=== PATIENT | male | born 1945 | race Caucasian/White ===

== ENCOUNTER 2025-02-21 12:14 | Emergency (ER) | payer OTHER, SELFPAY ==
--- NOTE | 2025-02-21 12:18 | ED_ITS ---
HPI - Animal Bite General Chief Complaint: Animal Bite Stated Complaint: right hand pointer finger cat bite Time Seen by Provider: 02/21/25 12:17 Source: patient Mode of arrival: ambulatory Limitations: no limitations History of Present Illness HPI narrative: Donnie is a 79 year old female patient presenting to the clinic today with c/oa cat bite to his right index finger x4 days. He reports it was his inside cat that bite him. States he was petting the cat the cat began to play and bit down on his right index finger. No known rabies. Has swelling and tenderness with mild erythema to the right index finger. No drainage. Denies any fevers, chills, body aches, or joint pain. Is able to flex and extend the finger. Tetanus status unknown. Related Data Home Medications ?Medication ?Instructions ?Recorded ?Confirmed ?Last Taken ?Type latanoprost 0.005 % eye drops drp 02/21/25 Unknown History tamsulosin 0.4 mg capsule mg PO 02/21/25 Unknown History Allergies Allergy/AdvReac Type Severity Reaction Status Date / Time No Known Allergies Allergy Verified 02/21/25 12:28 Review of Systems Review of Systems: Pertinent positives per HPI. Patient denies any fever, chills, rash, headache, visual changes, dizziness, cough, runny nose, sore throat, shortness of breath, chest pain, palpitations, nausea, vomiting, diarrhea, constipation, abdominal pain, or any urinary issues. PMFSH Comments At the time of my signature, I reviewed and agree with the nursing past medical, surgical, social, and family history. There is no relevant family history pertinent to the patient complaint. Exam Narrative: General: Well-developed, well nourished, in no apparent distress Head: Normocephalic, atraumatic. Cardio: Regular rate and rhythm, s1 and s2 normal, no murmur appreciated. Resp: Clear to auscultation bilaterally, no rhonchi, rales, wheezing or rubs. Integumentary: [place], warm, and dry, closed puncture wound to the dorsal proximal index finger just below the PIP joint was localized swelling, erythema, and redness of the right index finger with mild redness and swelling over the right 2nd knuckle, range of motion within normal limits, right radial pulses strong and regular Course Course Emergency Course: Portions of this record may have been created with voice recognition software. Level of Care: Express Care Visit Vital Signs Vital signs: Vital Signs Temperature 36.6 C 02/21/25 12:28 Pulse Rate 77 02/21/25 12:28 Respiratory Rate 16 02/21/25 12:28 Blood Pressure 129/67 02/21/25 12:28 Pulse Oximetry 97 02/21/25 12:28 Oxygen Delivery Room Air 02/21/25 12:28 Temperature 36.6 C 02/21/25 12:28 Pulse Rate 77 02/21/25 12:28 Respiratory Rate 16 02/21/25 12:28 Blood Pressure 129/67 02/21/25 12:28 Pulse Oximetry 97 02/21/25 12:28 Oxygen Delivery Room Air 02/21/25 12:28 Vital signs reviewed MDM - Animal Bite MDM Narrative Medical decision making narrative: At the time of visit patient is resting comfortably on the exam table. Patient appears to be nontoxic. Plan: I suspect patient has an infected cat bite to the right index finger. Prescription for Augmentin was sent to the pharmacy. Tetanus was updated in the clinic today. Supportive measures were discussed with the patient and they voiced understanding discharge instructions and agrees to treatment plan. Return precautions reviewed Differential Diagnosis Differential diagnosis: Likely bite by animal, cat bite and other (Cellulitis) Discharge Plan Discharge Clinical Impression: Cat bite of finger Qualifiers: Encounter type: initial encounter Qualified Code(s): S61.259A - Open bite of unspecified finger without damage to nail, initial encounter Patient Disposition: Home Condition: Stable Instructions: Antibiotic Form, Animal Bite (ED) Additional Instructions: Tdap 0.5ml given in the clinic today. Take Augmentin as prescribed Leave bandage on for 24 hours then may remove and apply band aide covering as needed. Keep wound clean and dry Watch for signs and symptoms of infection-fever not controlled by Tylenol or Motrin, increase in redness, streaking, swelling, purulent discharge, or increase in pain. Follow up with your PCP in 2 days for wound check Patient Language: Swedish Prescriptions: New amoxicillin-pot clavulanate 875-125 mg tablet 1 tablet PO Q12H 7 Days Qty: 14 0RF No Action latanoprost 0.005 % drops tamsulosin 0.4 mg capsule PO Follow-up/Referrals: UNKNOWN,DOCTOR [Non-Staff] - Time of Disposition: 12:30 Quality NIHSS Nursing Documentation ED NIHSS nursing documentation: reviewed/agree
--- OUTSIDE RECORDS SUMMARY | 2025-02-21 12:23 | XMS_ITS | Encounter Summary ---
Author Organization [facility] Address [address] [place] [address] Phone Care Team Providers Care Officer Lieutenant Name Role Phone Landon Heath MD Primary Care Provider [phone] Encounter Details Date Type Department Care Team (Late st Contact Info) Description 01/17/2025 Results Follow-Up [facility] Dermatology [address] [place] [address] [address] [place] [phone] Earline Sanchez MD [address] [place] [address] [address] [place] [address] Surgical pathology Social History Tobacco Use Types Packs/Day Years Used Date Smoking Tobacco: Never Smokeless Tobacco: Never Alcohol Use Standard Drinks/Week Comments No 0 (1 standard drink = 0.6 oz pur e alcohol) [facility] Utilities Answer Date Recorded In the past 12 months has [employer], gas, oil, or water [employer] threatened to shut off services in your home? No 02/05/2024 Social Connection and Isolat ion Panel [NHANES] Answer Date Recorded In a typical week, how many times do you talk on the phone with family, friends, or neighbors? More than three times a week 02/05/2024 How often do you get togethe r with friends or relatives? More than three times a week 02/05/2024 How often do you attend chur or orthodox services? Never 02/05/2024 Do you belong to any clubs o r organizations such as caodaism groups, unions, fraternal or athletic groups, or school groups? Yes 02/05/2024 How often do you attend meet ings of the clubs or organizations you belong to? More than 4 times per year 02/05/2024 Are you , , di vorced, , never , or living with a partner? 02/05/2024 Overall Financial Resource Strain (CARDIA) Answe r Date Recorded How hard is it for you to pa y for the very basics like food, housing, medical care, and heating? Not hard at all 02/05/2024 PHQ-2 Answer Date Recorded PHQ-2 Total Score (If total score is 3 or more points, staff should administer the PHQ-9) 0 06/12/2024 Hunger Vital Sign Answer Date Recorded Within the past 12 months, y ou worried that your food would run out before you got the money to buy more. Never true 02/05/20 24 Within the past 12 months, t he food you bought just didn't last and you didn't have money to get more. Never true 02/05/2024 PRAPARE - Transportation Answer Date Re corded In the past 12 months, has l ack of transportation kept you from medical appointments or from getting medications? No 01/19 In the past 12 months, has l ack of transportation kept you from meetings, work, or from getting things needed for daily living? No 02/05/2024 Housing Stability Vital Sign Answer Jose e Recorded In the last 12 months, was t here a time when you were not able to pay the mortgage or rent on time? No 02/05/2024 In the past 12 months, how m any times have you moved where you were living? 1 02/05/2024 At any time in the past 12 m [facility], were you homeless or living in a retirement (including now)? No 02/05/2024 Personal Safety Answer Date Recorded Have you ever been in or are you currently in a harmful physical or emotional relationship or is someone making you feel afraid or unsafe? Denies 02/02/2024 Education Answer Date Recorded What is the highest level of school you have completed or the highest degree you have received? Master's degree (e.g., MA, MS, Kerrie, MEd, [employer]ER [employer], LENY) 02/05/2024 Sex and Gender Information Value Date Recorded Sex Assigned at Not on file Legal Sex Male 3:37 AM [employer] Gender Identity Not on file Sexual Orientation Not on file documented as of this encounter Plan of Treatment Not on file documented as of this encounter Visit Diagnoses Not on filedocumented in this encounter Care Teams Officer Lieutenant Relationship Specialty Start Date End Date Landon Heath MD [address] [address] PCP - General Internal Medicine 02/01/18 documented as of this encounter
--- OUTSIDE RECORDS SUMMARY | 2025-02-21 12:23 | XMS_ITS | Continuity of Care Document ---
Author Name [facility] Organization [facility] Care Team Providers Care Purchasing Analyst Name Role Phone [facility] Unavailable Unavailable Problems Combined list of problems from [facility] and [facility] facilities. It does not include entries that were removed or entered in error. Problem Status Onset Date Problem Type Date of Resolution Comments Source Adenomatous polyp of colon Active Condition [facility] Allergic rhinitis Active Condition [facility] Asthma Active Condition [facility] Bilateral hearing loss Active Condition [facility] BPH - benign prostatic hyperplasia Active Condition [facility] Cancer of skin Active Condition [facility] Glaucoma Active Condition [facility] Primary generalized osteoarthrosis Active Condition [facility] Diagnosis: ICD-10-CM H90.0 Conductive hearing loss, bilateral Active Diagnosis [facility] Diagnosis: ICD-10-CM M79.673 Pain in unspecified foot Active Diagnosis [facility] Medications Combined list of outpatient medications from [facility] and [facility] facilities.Medications provided include 1) outpatient medications from the last 15 months, and 2) patient-reported medications. Medication Details Route Status Patient Instructions Prescription Expires Prescription Number Last Dispense Date Ordering Provider Order Date Order Qty Source TAMSULOSIN HCL 0.4MG CAP TAKE 1 CAPSULE BY MOUTH EVERY EVENING ORAL ACTIVE Galina FUNEZ 2019 [facility] Immunizations Combined list of available immunizations from the [facility] and [facility] facilities. Immunization Series Date Given Administered By Site Reaction Lot Number CVX Code Drug Bag Filler Status Comments Source INFLUENZA, HIGH-DOSE, QUADRIVALENT 3 2020 197 complet ed HISTORICA L INFORMATI ON - FROM OTHER REGISTRY, [facility] COVID-19 (MODERNA), MRNA, LNP-S, PF, 100 MCG/0.5 ML DOSE 2 2020 207 complet ed MOD; [id number]; 1 [facility] COVID-19 (MODERNA), MRNA, LNP-S, PF, 100 MCG/0.5 ML DOSE 1 2020 207 complet ed MOD; [id number]; 1 [facility] ZOSTER RECOMBINANT 3 2018 187 complet ed HISTORICA L INFORMATI ON - FROM OTHER REGISTRY, [facility] ZOSTER RECOMBINANT 2 2018 187 complet ed HISTORICA L INFORMATI ON - FROM OTHER REGISTRY, [facility] N INFLUENZA, UNSPECIFIED FORMULATION 2017 88 complet ed [facility] INFLUENZA, UNSPECIFIED FORMULATION 2 2017 88 complet ed HISTORICA L INFORMATI ON - FROM OTHER REGISTRY, [facility] N PNEUMOCOCCAL POLYSACCHARID E PPV23 1 2017 33 complet ed HISTORICA L INFORMATI ON - FROM OTHER REGISTRY, [facility] INFLUENZA, UNSPECIFIED FORMULATION 1 2016 88 complet ed HISTORICA L INFORMATI ON - FROM OTHER REGISTRY, [facility] INFLUEN[facility], UNSPECIFIED FORMULATION [address] in [facility] DIVIS[facility] N ZOSTER LIVE 1 2015 121 complet ed HISTORICA L INFORMATI ON - FROM OTHER REGISTRY, [facility] Vital Signs Combined list of inpatient and outpatient Vital Signs from [facility] and [facility], ranging from 12 months to all on record, depending upon the facility. Vital Sign Value Date Comments Source SYSTOLIC BLOOD PRESSURE 135 01/09/2025 10:20:25 [facility] DIASTOLIC BLOOD PRESSURE 71 01/09/2025 10:20:25 [facility] PULSE OXIMETRY 99 01/09/2025 10:20:25 [facility] WEIGHT 199.2 01/09/2025 10:20:25 [facility] BMI 30 kg/m2 01/09/2025 10:20:25 [facility] PAIN 4 01/09/2025 10:20:25 [facility] HEIGHT 68 01/09/2025 10:20:25 [facility] TEMPERATURE 97.4 01/09/2025 10:20:25 [facility] PULSE 67 01/09/2025 10:20:25 [facility] RESPIRATION 18 01/09/2025 10:20:25 [facility] Encounters Combined list of: 1) Encounters from [facility] facilities going backup to the last 18 months, not all [place] inpatient encounters are included; 2) Encounters from the Department of [facility] facilities going backup to 280 months. Location Location Details Encounter Type Encounter Number Reason For Visit Attending Provider ADM Date DC Date Status Disposition Source [facility] Outpatient Encounter [id number] 10/23 [facility] Outpatient Encounter [id number] DEAN ALEXIS 01/04 [facility] DIVISION OFFICE O/P EST MOD 30 MIN [id number] Diagnos is: ICD-10- CM M79.673 Pain in unspeci fied foot KERA,C ORY A 01/09 [facility] N [facility] Outpatient Encounter [id number] 11/29 [facility] Outpatient Encounter [id number] DEAN ALEXIS 01/07 [facility] DIVISION OFFICE O/P EST MOD 30 MIN [id number] Diagnos is: ICD-10- CM H90.0 Conduct tomas hearing loss, Daniel Naidu A 01/09 [facility] Outpatient Encounter [id number] 01/21 [facility] Outpatient Encounter [id number] 01/31 [facility] Social History Combined list of available smoking, tobacco, and other social history from [facility] of Defense and Veterans Affairs facilities. Social History Type Response Date Comment [facility] e Tobacco smoking status NHIS VA-TOBACCO NEVER USED 01/10/2024 [facility] History of tobacco use VA-TOBACCO NEVER USED 11/18/2022 [facility] History of tobacco use VA-TOBACCO NEVER USED 11/19/2021 [facility] History of tobacco use VA-TOBACCO NEVER USED 06/24/2020 [facility] History of tobacco use VA-TOBACCO NEVER USED 12/20/2017 [facility] Plan of Care List of future care activities from [facility] facilities. Additional future care activities may be listed in the Assessment and Plan section. Date/Time Care Activity Care Activity Detail Facili ty 04/01/2025 AMBULATORY - SURGERY AMBULATORY - SURGERY [facility]
--- OUTSIDE RECORDS SUMMARY | 2025-02-21 12:23 | XMS_ITS | Clinical Summary ---
Author Organization [facility] Address [address] [place] [address] Care Team Providers Care Design Technology Professor Name Role Phone Unavailable Primary Care Provider Unavailabl e Source Comments [facility],non-owned Affiliates and Associated Physician Practices is amultiple site organization consisting of ambulatory clinics and hospital sitesin [place], [place], [place] and [place]. This disclosure is being madepursuant to the Care Everywhere program and may not contain all information available regarding this patient. Last updated 18.[facility] Social History Tobacco Use Types Packs/Day Years Used Date Smoking Tobacco: Never Assessed Sex and Gender Information Value Date Recorded Sex Assigned at Not on file Legal Sex Male 6:05 AM CARPENTER MATE Gender Identity Not on file Sexual Orientation Not on file Last Filed Vital Signs Vital Sign Reading Time Taken Comments Blood Pressure 120/62 09/27/2015 12:13 AM CARPENTER MATE Pulse 69 09/27/2015 12:13 AM CARPENTER MATE Temperature 36.3 C (97.3 F) 09/26/2015 8:20 PM CARPENTER MATE Respiratory Rate 16 09/27/2015 12:13 AM CARPENTER MATE Oxygen Saturation 100% 09/27/2015 12:13 AM CARPENTER MATE Inhaled Oxygen Concentration - - Weight 93.4 kg (206 lb) 09/26/2015 8:20 PM CARPENTER MATE Height 177.8 cm (5' 10) 09/26/2015 8:20 PM CARPENTER MATE Body Mass Index 29.56 09/26/2015 8:20 PM CARPENTER MATE Plan of Treatment Health Maintenance Due Date Last Done Comments DTAP/TDAP/TD VACCINES (1 - Tdap) 1962 PNEUMOCOCCAL VACCINE 50+ (1 of 1 - PCV) 1993 ZOSTER VACCINE (1 of 2) 1993 Respiratory Syncytial Virus (RSV) Vaccine Pt: or over 60 yrs (1 - 1-dose 75+ series) 2018 COVID-19 VACCINE ( - 2023-2 5 season) 2024 DEPRESSION SCREENING 08/21/2024 INFLUENZA VACCINE (Season Ended) 2025 HEPATITIS B VACCINE Aged Out No longe r eligible based on patient's age to complete this topic HIB VACCINE Aged Out No longer eligi ble based on patient's age to complete this topic HPV VACCINE Aged Out No longer eligi ble based on patient's age to complete this topic MENINGOCOCCAL (Group B) VACC INE SHARED DECISION-MAKING Aged Out No longer eligibl e based on patient's age to complete this topic MENINGOCOCCAL GROUPS A/C/Y/W VACCINE Aged Out No longer eligible b ased on patient's age to complete this topic
--- OUTSIDE RECORDS SUMMARY | 2025-02-21 12:23 | XMS_ITS | Referral Summary ---
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 superficial fragment of carr, variegated and scaly skin measuring 1.0 by 0.6 by 0.1 cm. The surgical margin is inked blue. The specimen is sectioned into 2 pieces and submitted entirely in a single cassette. Due to shrinkage, measurements may be different than those at time of procedure. sxt/mxf ICD-9 ZSD.1411 ZSD.27 Clerical Data A; 34450 B; 14949 C; 91808 The characteristics of special, immunohistochemical, and immunofluorescence stains and in-situ hybridization tests performed by the [facility] were deemed acceptable in ongoing housing quality standard inspector measures and in compliance with regulations drawn from the Clinical Laboratory Improvement Act cr9985 (CLIA '88). Control reactions for all stains performed were deemed adequate and appropriate by a pathologist prior to evaluation of patient tissue. Some diagnoses were rendered with the assistance of laboratory-developed tests utilizing analyte-specific reagents; the performance characteristic of these tests were determined by [facility] and are not cleared or approved by the [place] Food an Drug administration. Laboratory developed test may only be performed in a facility that is certified by the [facility] as a high-complexity laboratory under CLIA '88. These tests are used for clinical purposes and are not investigational. Earline Sanchez MD LAB PATHOLOGY ORDERABLES [facility] [address] [place] [id number] * XR Hip Right 2+ Vw (01/07/2025 4:42 PM CDT) Anatomical Region Laterality Modality Lower Extremities, Hip, Pelvis Right C omputed Radiography 01/08/2025 12:4 0 PM CDT Impressions 01/08/2025 12:40 PM CDT Comparison is made to prior radiograph 12/12/[address] 02/02/2024. Right hip arthroplasty noted. There has been interval progression of previously noted asymmetric liner wear. There is increasing lucency about the acetabular component suggestive of osteolysis. No periprosthetic fracture. Moderate pubic symphyseal osteoarthritis. Significant heterotopic ossification noted adjacent to the right superior lateral aspect of the joint. Electronically signed by: Kali Champagne M.D. Narrative 01/08/2025 12:40 PM CDT EXAMINATION: XR HIP RIGHT 2 OR 3 VIEWS HISTORY: Hip pain Procedure Note Kali Champagne MD - 01/08/2025 EXAMINATION: XR HIP RIGHT 2 OR 3 VIEWS HISTORY: Hip pain IMPRESSION: Comparison is made to prior radiograph 12/12/[address] 02/02/2024. Right hip arthroplasty noted. There has been interval progression of previously noted asymmetric liner wear. There is increasing lucency about the acetabular component suggestive of osteolysis. No periprosthetic fracture. Moderate pubic symphyseal osteoarthritis. Significant heterotopic ossification noted adjacent to the right superior lateral aspect of the joint. Electronically signed by: Kali Champagne M.D. Landon Heath MD IMG XR PROCEDURES Final Result * OCT, Retina - OU - Both Eyes (12/27/2024 10:39 AM CDT) Central Macular Thickness OS 297 mircometers CONTINUUM Central Macular Thickness OD 525 micrometers CONTINUUM Anatomical Region Laterality Modality Head Optical Coherenc e Tomography Narrative 12/27/2024 12:36 PM CDT Right Eye Macular thickness was 525 micrometers. Left Eye Macular thickness was 297 mircometers. Notes SRF and IRF OD Shahana Peck MD OPHTH TOMOGRAPHY Final Result * Colonoscopy (11/27/2023) Anatomical Region Laterality Modality Other [place] Provider ENDOSCOPY PROCEDURES Nieves l Result from Last 3 Months or Most Recently Relevant to Health Maintenance Insurance [facility] Advance Directives For more information, please contact: [phone] * Full Code (Latest Code Status on File) Date Activated Date Inactivated Comments 02/02/2024 6:55 PM 02/05/2024 10:40 PM Care Teams Horticulture Superintendent Relationship Specialty Start Date End Date Landon Heath MD [address] [address] PCP - General Internal Medicine 02/01/18
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
--- OUTSIDE RECORDS SUMMARY | 2025-02-21 12:23 | XMS_ITS | Clinical Summary ---
Author Organization [facility] Address [address] [place] [address] Care Team Providers Care [employer] Name Role Phone Landon Heath MD Primary Care Provider [phone] Allergies No known active allergies Medications multivitamin [...] 1.25 mg intravitr R One-Time Injection 01/30/2025 Ended Active Problems Problem Noted Date Diagnosed [...] months Assessment & Plan (09/04/2024 2:48 PM DIRECTOR IT): Denies DM II or HTN ME on [...] 08/04/2022 Assessment & Plan (08/04/2022 9:36 AM DIRECTOR IT): Recommend increase lubricant eye drops to 4 times/day; consider preservative- free drops, especially if using drops more than that. Add hot compresses with lid scrubs to improve quality of tears. Pseudophakia of both eyes 10/13/2021 Overview (10/13/2021): 1990s- Phaco/ intraocular lens (IOL)OU- [place] Assessment & Plan (09/04/2024 2:47 PM DIRECTOR IT): DFE next visit, ensure lenses in bag Assessment & Plan (07/19/2023 9:24 PM DIRECTOR IT): Doing well without concerns Assessment & Plan (06/15/2023 10:34 AM CDT): - Phaco/ intraocular lens (IOL)OU- [place] Implants in good position. Vision stable PCO both eyes (OU) not vi sig. Assessment & Plan (05/11/2023 10:09 AM CDT): 1990s- Phaco/ intraocular lens (IOL)OU- [place] Implants in good position. Vision stable PCO both eyes (OU) not vi sig. Assessment & Plan (08/04/2022 8:33 AM DIRECTOR IT): 1990s- Phaco/ intraocular lens (IOL)OU- [place] Implants in good position. Vision stable PCO both eyes (OU) not vi sig. Assessment & Plan (05/02/2022 9:10 AM CDT): - Phaco/ intraocular lens (IOL)OU- [place] Implants in good position. Vision stable PCO both eyes (OU) not vi sig. Assessment & Plan (02/16/2022 10:15 AM CDT): - Phaco/ intraocular lens (IOL)OU- [place] Implants in good position. Vision stable PCO both eyes (OU) not vi sig. Assessment & Plan (10/13/2021 10:33 AM DIRECTOR IT): - Phaco/ intraocular lens (IOL)OU- [place] Implants in [...] locally Assessment & Plan (10/09/2024 10:49 AM DIRECTOR IT): Patient with macular edema - improved on exam but steroid response Quick taper 3-2-1 over 3-4 days of PF Continue 3 classes OD Follow 2 weeks with mac OCT If edema returns will need VERONICA with retina Assessment & Plan (09/04/2024 2:48 PM DIRECTOR IT): POAG OU IOP OD borderline but stable OCT RNFL Stable HVF OU Continue 3 classes OD, 1 class OS Assessment & Plan (02/28/2024 1:45 PM CDT): POAG OU Denies concerns IOP at goal on 3 classes Follow 6 months with HVF/OCT OU Assessment & Plan (08/30/2023 2:49 PM DIRECTOR IT): IOP at goal on 3 classes OD, 1 class OS Doing well Follow for IOP check in 6 months, sooner for concerns Assessment & Plan (07/19/2023 9:25 PM DIRECTOR IT): S/p SLT x3 OD No SLT OS [...] subspecialist Assessment & Plan (08/04/2022 9:33 AM DIRECTOR IT): H/o SLT right eye (OD) - x [...] needed. Assessment & Plan (10/13/2021 10:40 AM DIRECTOR IT): H/o SLT right eye (OD) - x [...] loss. Assessment & Plan (06/23/2020 12:28 PM DIRECTOR IT): BMI Follow-up includes: nutrition counseling, exercise counseling and education provided. Erectile dysfunction 06/23/2020 Assessment & Plan (06/23/2020 12:59 PM DIRECTOR IT): He will try sildenafil 50 mg, 0.5-4 [...] this exam were completed as outlined by CMS. Please note that the documentation of this [...] R thigh x 1, ln2 blister care Encounters Date Type Department Care Team Description 01/30/2025 9:00 AM CDT Office Visit [facility] Ophthalmology 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) 01/17/2025 Results Follow-Up [facility] Dermatology [address] [place] [address] Earline Sanchez MD Surgical pathology 01/15/2025 Telephone [facility] [address], [place] [address] Landon Heath MD Referral Request 01/15/2025 Orders Only [facility] [address] [place] [address] Earline Sanchez MD Neoplasm of unspecified behavior of bone, soft tissue, and skin 01/14/2025 10:40 AM CDT Office Visit [facility] Dermatology [address] [place] [address] Earline Sanchez MD Neoplasm of unspecified behavior of bone, soft tissue, and skin (Primary Dx); Actinic keratosis; Epidermal cyst 01/10/2025 Telephone [facility] at [facility] [address], [place] [address] Landon Heath MD Medical Question/Miscellane ous 01/08/2025 Results Follow-Up [facility] [address], [place] [address] Landon Heath MD XR Hip Right 2+ Vw 01/07/2025 4:15 PM CDT - 01/07/2025 11:59 PM CDT Hospital Encounter [facility] - Imaging [address] [place] [address] Right hip pain Discharge Disposition: Discharge to home or self care 01/07/2025 3:30 PM CDT Office Visit [facility] Primary Care at [facility] [address] [place] [address] Landon Heath MD Right hip pain (Primary Dx); BMI 29.0-29.9,adult 12/30/2024 Telephone [facility] at [facility] [address] [place] [address] Landon Heath MD Referral Request 12/27/2024 9:15 AM CDT Office Visit [facility] Ophthalmology [address] [place] [address] Shahana Peck MD Macular edema (Primary Dx) 12/26/2024 Telephone [facility] Ophthalmology [address] [place] [address] Shahana Peck MD New symptoms from Last 3 Months Immunizations Immunization Administration Dates Next Due Influenza, [...] 03/05/2018 ZOSTER LIVE 02/09/2016 ZOSTER Recombinant 07/16/2019,05/13/2019 Surgical History Surgery Date Site/Laterality Comments HIP ARTHROPLASTY Hip replacement KNEE ARTHROPLASTY Knee replacement CATARACT EXTRACTION W/ INTRAOCULAR LENS IMPLANT Bilateral w/ Dr. Rodas TRABECULOPLASTY 04/18/2022 Right Repeat SLT- LMT TRABECULOPLASTY Right SLT x2 (Dr. Rodas and Dr. Estrada) Medical History Medical History Date Comments No pertinent past medical history Glaucoma Family History Medical History Relation Name Comments Depression Brother Depression; Alcohol abuse Father Alcoholism; Glaucoma Father Diabetes type II Maternal Grandmother Jessica betes mellitus type 2; Alcohol abuse Mother Alcoholism; Blindness Paternal Grandfather Glaucoma Paternal Grandfather Breast cancer Paternal Grandmother Cancer , breast; Macular degeneration Neg Hx Relation Name Status Comments Brother Father Maternal Grandmother Mother Paternal Grandfather Paternal Grandmother Social History Tobacco Use Types Packs/Day Years Used Date Smoking Tobacco: Never Smokeless Tobacco: Never Tobacco Cessation:Counseling Given: Not Answered Alcohol Use Standard Drinks/Week Comments No 0 (1 standard drink = 0.6 oz pur e alcohol) [facility] Utilities Answer Date Recorded In the past [...] often do you attend chur ch or gnosticist services? Never 02/05/2024 Do you belong to any clubs o r organizations such as yazidi groups, unions, fraternal or athletic groups, or [...] any time in the past 12 m [facility], were you homeless or living in a alf (including now)? No 02/05/2024 Personal Safety Answer [...] Master's degree (e.g., MA, MS, Kerrie, MEd, POWDERMAN, LENY) 02/05/2024 Sex and Gender Information Value Date Recorded Sex Assigned at Not on file Legal Sex Male 3:37 AM DIRECTOR IT Gender Identity Not on file Sexual Orientation Not on file Obstetrics History Last Filed Vital Signs Vital Sign Reading [...] 01/07/2025 3:22 PM CDT Plan of Treatment Health Maintenance Due Date Last Done Comments DTaP/Tdap/Td Vaccine (1 - Tdap) 1956 Hepatitis B Screening 1963 Covid-19 Vaccine (3 - 2023-2 5 season) 2024 11/21/2020, 10/25/2020 Influenza Vaccine (Season Ended) 2025 05/24/2021, 07/13/2020, 06/05/2020, Additional history exists Depression Screening 06/12/2025 06/12/2024, 06/05/2023, 05/30/2022, Additional history exists Fall Risk Assessment 06/12/2025 06/12/2024, 02/05/2024, 06/05/2023, Additional history exists Well Visit 65+ 06/12/2025 06/12/2024, 05/21, 05/30/2022, Additional history exists Colon Cancer Screening-Colonoscopy 11/26/2028 11/27/2023, 12/06/2018, 10/22/2015, Additional history exists Zoster Vaccine Completed 07/16/2019, 04/22, 02/09/2016 Pneumococcal vaccine 65+ Completed 020, 03/05/2018, 06/04/2015 Procedures Procedure Name Priority Date/Time Associated Diagnosis [...] mL Route: intravitreal RIGHT, Site: Right Eye [facility]: 72054-199-95, Lot: [id number], Expiration date: 04/17/2025 Medication Billing The medication [...] results best viewed via link to PDF [facility] [address] [place] [address], [address], [place] [address] [email or web address] Note to Patients: This report may contain [...] Submitting Physician Information: Earline Sanchez M.D. [address] [place] [address], [phone] DERMATOPATHOLOGY REPORT RESULTS DIAGNOSIS: A. SKIN, LEFT [...] sxt/mxf ICD-9 ZSD.1411 ZSD.27 Clerical Data A; 42323 B; 51406 C; 89519 The characteristics of special, immunohistochemical, and immunofluorescence stains and in-situ hybridization tests performed by the [facility] were deemed acceptable in ongoing corporate quality engineer measures and in compliance with regulations drawn from the Clinical Laboratory Improvement Act vm7528 (CLIA '88). Control reactions for all stains performed were deemed adequate and appropriate by a pathologist prior to evaluation of patient tissue. Some diagnoses were rendered with the assistance of laboratory-developed tests utilizing analyte-specific reagents; the performance characteristic of these tests were determined by [facility] and are not cleared or approved by the [place] Food an Drug administration. Laboratory developed test may only be performed in a facility that is certified by the [facility] as a high-complexity laboratory under CLIA '88. These tests are used for clinical purposes and are not investigational. Earline Sanchez MD LAB PATHOLOGY ORDERABLES Fin al Result [facility] [address] [place] [id number] * XR Hip Right 2+ Vw (01/07/2025 [...] Colonoscopy (11/27/2023) Anatomical Region Laterality Modality Other Historical Provider ENDOSCOPY PROCEDURES Nieves l Result from Last 3 Months or Most Recently Relevant to Health Maintenance Insurance [facility] Advance Directives For more information, please contact: [phone] * Full Code (Latest Code Status on File) Date Activated Date Inactivated Comments 02/02/2024 6:55 PM 02/05/2024 10:40 PM Care Teams [employer] Relationship Specialty Start Date End Date Landon Heath MD [address] [address] PCP - General Internal Medicine 02/01/18
[2025-02-21 12:28] VITALS: BP 129/67; PULSE 77; RESP 16; TEMP 36.6; O2SAT 97
[2025-02-21] MEDS: TETANUS,DIPHTHERIA,AC PERTUSSIS ADULT (0.5 ML) BOOSTRIX IM (12:36)
== END 2025-02-21 12:43 | disposition home or self-care (01) ==
LOC: EXPBETH 12:21
PROVIDERS: Emergency Provider Nurse Practitioner Family
DX: S61.230A Puncture wound without foreign body of right index finger without damage to nail, initial encounter (principal); W55.01XA Bitten by cat, initial encounter; Z23 Encounter for immunization
CPT/HCPCS: 90471; 90715; 99203; G0463